=== PATIENT | male | born 1975 | race Caucasian/White ===

== ENCOUNTER 2019-03-14 09:10 | Emergency (ER) | payer MEDICAID ==
[~2019-03-14] VITALS: Ht 170.2 cm; Wt 74.0 kg
--- NOTE | 2019-03-14 09:30 | NUR ---
ASSUMED CARE OF PT AT THIS TIME FROM TRIAGE. AMBULATORY TO ROOM WITH STEADY GAIT. PT RA SATURATION 87%. PT REPORTS "I'M ALWAYS IN THE 80'S, EVERY SINCE I WAS KID, HAD HEART SURGERY AT AGE 8, THEY ALWAYS GET EXCITED ABOUT MY OXGYEN WHEN I COME TO HOSPITAL BUT I'M FINE." DENIES CP, SOB AND HOME O2 USE. 43 Y/O M PRESENTS STATING "ABDOMINAL PAIN FOR 1-2 MONTHS, GETTING WORSE, EVERY MORNING AFTER I EAT I THROW UP ONCE OR TWICE AND THEN FINE FOR REST OF THE DAY, THE PAIN ISN'T BAD NOW BUT IT COMES IN WAVES AND IT IT'S EXTREME." RATES ABD PAIN 5/10, REFSUSES NEED FOR PAIN MEDICATION "I'M COMFORTABLE RIGHT NOW." CONT PULSE OX, BP, CARDIAC MONITORS APPLIED. VSS. ST ON MONITOR. CALL LIGHT IN REACH IN REACH. FALL PRECAUTIONS IN PLACE. A&OX4. FAMILY AT BEDSIDE. AIXA MORTON AT BEDSIDE FOR EVALUATION. CLEAN CATCH UA COLLECTED.
[2019-03-14 09:55] LABS: MICROSCOPIC AUTO
[2019-03-14 09:57] LABS: CULTURE INDICATED? YES
[2019-03-14 10:05] LABS: ALANINE AMINOTRANSFERASE 38 U/L (12-78); ALBUMIN 3.8 g/dL (3.4-5.0); ANION GAP 8 mmol/L (5-15); CHLORIDE 102 mmol/L (98-107); CREATININE 0.95 mg/dL (0.7-1.3)
[2019-03-14 10:08] LABS: ALKALINE PHOSPHATASE 118 U/L (45-117); BILIRUBIN,TOTAL 0.9 mg/dL (0.2-1.0); TOTAL PROTEIN 7.9 g/dL (6.4-8.2)
--- NOTE | 2019-03-14 10:24 | NUR ---
PT RESTING IN POSITION OF COMFORT. RATES PAIN 6/10 IN ABD, REFUSES NEED FOR PAIN MEDICATION. DENIES ANY NAUSEA. TALKATIVE AND CHEERFUL WITH FAMILY AT BEDSIDE. CONTINUE AWAITING LAB RESULTS, LAB CALLED, TO BE POSTED SHORTLY. VSS. CALL LIGHT IN REACH. RESP REGULAR AND UNLABORED. PULSE OX 91% 3L NC. SKIN PWD. DENIES CP, SOB.
[2019-03-14 10:39] LABS: MEAN CORPUSCULAR HEMOGLOBIN 33.3 pg (27.5-34.5); MEAN CORPUSCULAR HGB CONC 33.1 g/dL (33.2-36.2); MEAN CORPUSCULAR VOLUME 100.8 fL (81-97); RED BLOOD COUNT 5.45 x10^6/uL (4.38-5.82); RED CELL DISTRIBUTION WIDTH 14.5 % (9.4-14.8)
[2019-03-14 10:51] LABS: MEAN PLATELET VOLUME 11.4 fL (7.4-10.4); PLATELET COUNT 85 x10^3/uL (130-400)
--- NOTE | 2019-03-14 10:59 | NUR ---
DR. HENNESSY AT BEDSIDE FOR EVALUATION
[2019-03-14 11:01] LABS: MD SCAN
[2019-03-14 11:02] LABS: BASOPHILS # (AUTO) 0.02 x10^3/uL (0-0.1); BASOPHILS % (AUTO) 0 % (0-1); EOSINOPHILS # (AUTO) 0.05 x10^3/uL (0-0.4); EOSINOPHILS % (AUTO) 1 % (1-7); LYMPHOCYTES # (AUTO) 1.65 x10^3/uL (1-3.4); LYMPHOCYTES % (AUTO) 26 % (22-44); MONOCYTES # (AUTO) 0.54 x10^3/uL (0.2-0.8); MONOCYTES % (AUTO) 9 % (2-9); NEUTROPHILS # (AUTO) 4.13 x10^3/uL (1.8-6.8); NEUTROPHILS % (AUTO) 65 % (42-75)
--- NOTE | 2019-03-14 11:30 | NUR ---
AIXA MORTON AT BEDSIDE DISCUSSING POC WITH PT, PT RA SATUATION 86-89%, AIXA MORTON AND DR. HENNESSY AT BEDSIDE, AWARE, PT REPORTS "I'M ALWAYS THIS LOW, I'VE NEVER NEEDED OXYGEN OR WANTED TO USE IT, I MONITOR IT CLOSELY AND IF I EVER FEEL I NEED HOME OXYGEN I WILL COME GET IT." DENIES ANY SOB, BREATHING DIFFICULTY, CP, VITALS OTHERWISE STABLE. PT TO BE DISCHARGED PER ERP DR. HENNESSY
[2019-03-14 11:49] VITALS: BP 127/83
== END 2019-03-14 11:53 | disposition home or self-care (01) ==
LOC: ED 10:41
DX: R10.84 Generalized abdominal pain (principal)
CPT/HCPCS: 36415; 71045; 80053; 81001; 83690; 85025; 87086; 93005; 99284

== ENCOUNTER 2019-03-31 14:01 | Emergency (ER) | payer MEDICAID ==
[~2019-03-31] VITALS: Ht 170.2 cm; Wt 70.0 kg
--- NOTE | 2019-03-31 14:35 | NUR ---
Yellow slip sent to pharmacy requesting medication per EMAR.
[2019-03-31] MEDS ORDERED: LIDOCAINE GEL 2%, 5ML TP ONE (15:00)
[2019-03-31] MEDS ORDERED: LIDOCAINE JELLY 2%, 30GM TP ONE (15:00)
--- NOTE | 2019-03-31 15:29 | NUR ---
Called pharmacy requesting medication per EMAR requested on yellow slip. forestry aid technician states, "I will send it right away."
--- NOTE | 2019-03-31 15:29 | NUR ---
Pt resting on [employer]. LEIDA. Pt talking on cell phone. No needs expressed.
[2019-03-31 15:57] VITALS: BP 103/62
== END 2019-03-31 16:01 | disposition home or self-care (01) ==
LOC: ED 14:45
DX: H60.8X1 Other otitis externa, right ear (principal); E11.65 Type 2 diabetes mellitus with hyperglycemia; R09.02 Hypoxemia
CPT/HCPCS: 82962; 99283

== ENCOUNTER 2021-03-11 21:02 | Inpatient (IN) | payer MEDICAID ==
[~2021-03-11] VITALS: Ht 170.2 cm; Wt 71.8 kg
[~2021-03-11 21:02] MED LIST: GABA300S PO; GABA600T7 PO; INSU100C SQ-INSULIN; INSU100V8 SQ; LISI30TA4 PO; LISI5TAB7 PO; METH-639 PO; METO50TA82 PO; PANT40TA3 PO; SPIR25TA5 PO
[2021-03-11] MEDS ORDERED: ADENOSINE 6 MG/2 ML ONE (21:07)
[2021-03-11] MEDS ORDERED: DILTIAZEM 5 MG/ML, 5ML ONE ×2 (21:20→21:58)
--- NOTE | 2021-03-11 21:20 | NUR ---
Patient BIBA from home c/o palpitations. Patient in SVT for EMS. Per patient, he suddenly experienced palpitations which became longer palpitations and pain in left side of chest. Patient also experienced SOB, one episode of vomiting, and syncope. 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 For EMS, patient was diaphoretic and obviously SOB. In SVT at a rate of 250-260. Admin Adenosine x3 doses; [id number]. Rate slowed to approx 140-150. He was also hypotensive. EMS admin 1L NS with a pressure bag; last BP for EMS 90/60. Currently patient slightly diaphoretic. C/o CP 02/26 and SOB. Patient hypotensive; admin 2nd L NS.
[2021-03-11 21:30] LABS: BASOPHILS % (AUTO) 1 % (0-1); EOSINOPHILS % (AUTO) 1 % (1-7); LYMPHOCYTES % (AUTO) 26 % (22-44); MEAN PLATELET VOLUME 11.5 fL (7.4-10.4); MONOCYTES % (AUTO) 10 % (2-9); NEUTROPHILS % (AUTO) 62 % (42-75); PLATELET COUNT 70 x10^3/uL (130-400); RED BLOOD COUNT 5.08 x10^6/uL (4.38-5.82); RED CELL DISTRIBUTION WIDTH 14.8 % (9.4-14.8)
[2021-03-11] MEDS ORDERED: SODIUM CHLORIDE 0.9% 1,000ML IVBOLUS ONE (21:30)
[2021-03-11] MEDS ORDERED: PLEASE ENTER HEIGHT AND WEIGHT MC SCH (21:30)
[2021-03-11] MEDS ORDERED: ADENOSINE 6 MG/2 ML IVPush ONE (21:30)
[2021-03-11 21:40] LABS: ALANINE AMINOTRANSFERASE 36 U/L (12-78); ALBUMIN 3.7 g/dL (3.4-5.0); ANION GAP 11 mmol/L (5-15); CALCIUM 8.6 mg/dL (8.5-10.1); CHLORIDE 106 mmol/L (98-107)
[2021-03-11 21:43] LABS: ALKALINE PHOSPHATASE 74 U/L (45-117); CREATININE 2.34 mg/dL (0.7-1.3)
--- NOTE | 2021-03-11 21:44 | NUR ---
2118: 12mg Adenosine with no changes. 2124: 20mg Cardizem with rate change to 108-120. Patient states CP decreased to a 3/10 and breathing is better.
[2021-03-11] MEDS ORDERED: DILTIAZEM 5 MG/ML, 5ML IVPush ONE ×3 (22:00→22:30)
--- NOTE | 2021-03-11 22:45 | NUR ---
Initiated 500mL NS bolus due to SBP maintaining <90.
[2021-03-11] MEDS ORDERED: KETAMINE 100 MG/ML, 5ML IV ONE (22:46)
--- NOTE | 2021-03-11 23:15 | NUR ---
Patient prepped for procedural sedation for cardioversion.
[2021-03-11] MEDS ORDERED: ACETAMINOPHEN 325 MG TABLET PO PRN (23:30)
[2021-03-11] MEDS: INSULIN GLARGINE 100 UNITS/ML, PEN SQ-INSULIN SCH (23:30)
[2021-03-11] MEDS ORDERED: ZOLPIDEM 5MG TABLET PO PRN (23:30)
[2021-03-11] MEDS ORDERED: BACLOFEN 10 MG TABLET PO PRN (23:30)
[2021-03-11] MEDS ORDERED: ONDANSETRON 2MG/ML, 2ML IVPush PRN (23:30)
[2021-03-11] MEDS ORDERED: DOCUSATE 100 MG CAPSULE PO PRN (23:30)
[2021-03-11] MEDS ORDERED: hydrALAzine 20 MG/ML, 1ML IVPush PRN (23:30)
[2021-03-11] MEDS ORDERED: GUAIFENESIN/DM 200-20MG, 10ML UDC PO PRN (23:30)
--- NOTE | 2021-03-11 23:30 | NUR ---
100mg Ketamine total admin for procedural sedation.
--- NOTE | 2021-03-11 23:58 | NUR ---
Patient recovering from procedural sedation. Report given to HEATHER Hollis. Patient to be transferred to room 523 after recovery.
--- NOTE | 2021-03-12 00:15 | NUR ---
Patient AAOx4, GCS 15. Ready for transport.
[2021-03-12 00:45] VITALS: BP 115/76
[2021-03-12] MEDS: SODIUM CHLORIDE 0.9% 1,000 ML IV SCH ×3 (01:21→22:44)
[2021-03-12 05:36] LABS: BASOPHILS % (AUTO) 1 % (0-1); EOSINOPHILS % (AUTO) 1 % (1-7); LYMPHOCYTES % (AUTO) 33 % (22-44); MEAN CORPUSCULAR HEMOGLOBIN 35.1 pg (27.5-34.5); MEAN CORPUSCULAR HGB CONC 34.2 g/dL (33.2-36.2); MEAN PLATELET VOLUME 11.1 fL (7.4-10.4); MONOCYTES % (AUTO) 9 % (2-9); NEUTROPHILS % (AUTO) 56 % (42-75); PLATELET COUNT 56 x10^3/uL (130-400); RED BLOOD COUNT 4.76 x10^6/uL (4.38-5.82); RED CELL DISTRIBUTION WIDTH 15.1 % (9.4-14.8)
[2021-03-12 05:53] LABS: CHLORIDE 113 mmol/L (98-107)
[2021-03-12 05:59] LABS: ANION GAP 9 mmol/L (5-15); CREATININE 1.26 mg/dL (0.7-1.3)
[2021-03-12] MEDS: INSULIN REGULAR 100 UNITS/ML, 3ML VIAL SQ-INSULIN SCH ×4 (07:00→21:00)
[2021-03-12 07:54] VITALS: BP 132/83
[2021-03-12] MEDS: GABAPENTIN 300 MG CAPSULE PO SCH ×2 (08:08→22:29)
[2021-03-12] MEDS: LISINOPRIL 5 MG TABLET PO SCH ×2 (08:08→22:29)
[2021-03-12] MEDS: METOPROLOL TARTRATE 50 MG TAB PO SCH (08:08)
[2021-03-12] MEDS: METHOCARBAMOL 500 MG TABLET PO SCH ×2 (08:08→22:29)
[2021-03-12] MEDS: PANTOPRAZOLE 40MG TABLET PO SCH (08:08)
[2021-03-12] MEDS ORDERED: LORazepam 2 MG/ML, 1ML IVPush ONE (11:00)
[2021-03-12 13:22] VITALS: BP 120/77
[2021-03-12 22:23] VITALS: BP 128/82
[2021-03-12] MEDS: INSULIN GLARGINE 100 UNITS/ML, PEN SQ-INSULIN SCH (22:33)
[2021-03-13 03:05] VITALS: BP 121/78
[2021-03-13] MEDS: INSULIN REGULAR 100 UNITS/ML, 3ML VIAL SQ-INSULIN SCH ×2 (07:00→11:00)
[2021-03-13 08:40] VITALS: BP 179/103
[2021-03-13] MEDS ORDERED: SPIRONOLACTONE 25 MG TABLET PO SCH (09:00)
[2021-03-13] MEDS ORDERED: CHLORDIAZEPOXIDE 25 MG CAPSULE PO ONE (09:00)
[2021-03-13] MEDS: METOPROLOL TARTRATE 50 MG TAB PO SCH (09:27)
[2021-03-13] MEDS: PANTOPRAZOLE 40MG TABLET PO SCH (09:27)
[2021-03-13] MEDS: GABAPENTIN 300 MG CAPSULE PO SCH (09:27)
[2021-03-13] MEDS: METHOCARBAMOL 500 MG TABLET PO SCH (09:28)
[2021-03-13] MEDS: LISINOPRIL 5 MG TABLET PO SCH (09:28)
[2021-03-13] MEDS: SODIUM CHLORIDE 0.9% 1,000 ML IV SCH (10:40)
== END 2021-03-13 16:41 | disposition home or self-care (01) | DRG 682 ==
LOC: ED 22:33 → EDIP 23:37 → INTOOBSV 23:37 → OBSVTOIN 23:37 → 5SO 03-12 00:30
PROVIDERS: ADMIT Internal Medicine; ATTEND Hospitalist
PROC: 5A2204Z Restoration of Cardiac Rhythm, Single (ICD-10-PCS; principal; 2021-03-11)
DX: N17.9 Acute kidney failure, unspecified (principal); Q20.4 Double inlet ventricle; I50.20 Unspecified systolic (congestive) heart failure; I47.1 Supraventricular tachycardia; K21.9 Gastro-esophageal reflux disease without esophagitis; F17.210 Nicotine dependence, cigarettes, uncomplicated; F10.10 Alcohol abuse, uncomplicated; D50.9 Iron deficiency anemia, unspecified; E11.9 Type 2 diabetes mellitus without complications; D69.6 Thrombocytopenia, unspecified; D53.9 Nutritional anemia, unspecified; E86.0 Dehydration; I48.91 Unspecified atrial fibrillation; F12.90 Cannabis use, unspecified, uncomplicated; K70.30 Alcoholic cirrhosis of liver without ascites; Z76.82 Awaiting organ transplant status; Z79.4 Long term (current) use of insulin; Z81.8 Family history of other mental and behavioral disorders; Z82.49 Family history of ischemic heart disease and other diseases of the circulatory system; Z83.3 Family history of diabetes mellitus; Z95.2 Presence of prosthetic heart valve; Z88.2 Allergy status to sulfonamides
CPT/HCPCS: 36415; 71045; 80048; 80053; 82962; 83690; 84484; 85025; 92960; 93005; 93306; 96374; 99152; G0378; J0153; J1815; J2060; J7030

== ENCOUNTER 2021-06-03 08:12 | Inpatient (IN) | payer MEDICAID ==
[~2021-06-03] VITALS: Ht 170.2 cm; Wt 73.7 kg
[2021-06-03] MEDS ORDERED: ONDANSETRON 2MG/ML, 2ML ONE (08:15)
--- NOTE | 2021-06-03 08:16 | NUR ---
0810 45 YR OLD MALE ARRIVED VIA EMS, PER REPORT PT WAS AT HOME, HAD DIZZINESS, SYNCOPAL EPISODE, N/V FELT LIKE HEART WAS RACING. FIRE DEPARTMENT ARRIVED UNABLE TO PALPATE PULES OR OBTAIN A MANUAL BP. PT IN AMBULANCE, HEART RATE FOUND TO BE 220, POOR SPO2 READING. PT RECEIVED 6MG ADENOSIN, 12MG ADENOSINE AND 12MG ADENOSINE, WITH SLIGHT SLOWING AFTER 1STG DOSE OF 12 MG AND RETURN TO SVT. BLOOD SUGAR 236. PT HAS BEEN RESPONSIVE ENTIRE TIME. PT ARRIVES WITH IV X2 IN PLACE, RECEIVED 500MG NS. DR ARCHIBALD AT BEDSIDE. 0814 PT RECEIVED 10MG ETOMIDATE, PT WITH NAUSEA. 0815 SYNCHRONIZED CARDIOVERSION AT 150J. HR DECREASED TO 70'S. 0815 4MG ZOFRAN GIVEN.
[2021-06-03] MEDS ORDERED: ETOMIDATE 20 MG/10 ML IVPush ONE (08:30)
[2021-06-03] MEDS ORDERED: CODE BLUE RESPONSE XX ONE (08:32)
--- NOTE | 2021-06-03 08:35 | NUR ---
PT AWAKE AND & ORIENTED X 4, STATES THIS EPISODE STARTED LAST NIGHT, "I FELL OUT BED AND WOKE UP", THEN THIS MORNING, I FELL AND REMEMBER BEING IN A AMBULANCE. PT IS IN SINSUS AT 66 VIA CONTINOUS RADIOLOGY MANAGER, CONTINOUS SPO2 AT 93% MASK 8 LNC, PT STATES HE IS ON 5LNC AT ALL TIMES, AND CYCLE VS. PT DRINKING WATER, WARM BLANKET GIVEN, CALL LIGHT IN PLACE, PT VERBALIZED NO OTHER NEEDS. X RAY COMPLETE, AND LAB
[2021-06-03 08:46] LABS: BASOPHILS % (AUTO) 1 % (0-1); EOSINOPHILS % (AUTO) 2 % (1-7); LYMPHOCYTES % (AUTO) 32 % (22-44); MEAN CORPUSCULAR HEMOGLOBIN 33.8 pg (27.5-34.5); MEAN CORPUSCULAR HGB CONC 33.6 g/dL (33.2-36.2); MEAN PLATELET VOLUME 10.8 fL (7.4-10.4); MONOCYTES % (AUTO) 9 % (2-9); NEUTROPHILS % (AUTO) 56 % (42-75); PLATELET COUNT 95 x10^3/uL (130-400); RED BLOOD COUNT 5.75 x10^6/uL (4.38-5.82); RED CELL DISTRIBUTION WIDTH 13.9 % (9.4-14.8)
--- NOTE | 2021-06-03 08:54 | NUR ---
RECEIVED REPORT FROM HEATHER JOHNSON. PT RESTING ON DEYSI. LEIDA. MONITORS IN PLACE. PT NOTED TO BE SR ON MONITOR. PT MOVED TO ROOM 12 W/ ALL PERSONAL BELONGINGS.
[2021-06-03 09:04] LABS: ALBUMIN 3.5 g/dL (3.4-5.0); ANION GAP 10 mmol/L (5-15); CALCIUM 8.7 mg/dL (8.5-10.1); CHLORIDE 111 mmol/L (98-107); CREATININE 1.35 mg/dL (0.7-1.3)
[2021-06-03 09:07] LABS: TROPONIN I 0.094 ng/mL (0.000-0.045)
[2021-06-03] MEDS ORDERED: ONDANSETRON 2MG/ML, 2ML IVPush ONE (09:30)
[2021-06-03] MEDS ORDERED: LABETALOL 5MG/ML, 20ML IVPush PRN (10:00)
[2021-06-03] MEDS ORDERED: DEXTROSE 4 GM TAB.CHEW PO PRN (10:00)
[2021-06-03] MEDS ORDERED: GLUCAGON 1 MG IM PRN (10:00)
[2021-06-03] MEDS ORDERED: MELATONIN 5 MG TABLET PO PRN (10:00)
[2021-06-03] MEDS ORDERED: hydrALAzine 20 MG/ML, 1ML IVPush PRN (10:00)
[2021-06-03] MEDS ORDERED: ACETAMINOPHEN 325 MG TABLET PO PRN (10:00)
[2021-06-03] MEDS ORDERED: DEXTROSE 50%, 50ML SYRINGE IVPush PRN (10:00)
[2021-06-03] MEDS ORDERED: DOCUSATE 100 MG CAPSULE PO PRN (10:00)
[2021-06-03] MEDS ORDERED: NITROGLYCERIN 0.4 MG BOTTLE (25 TABS) SL PRN (10:00)
[2021-06-03] MEDS ORDERED: BISACODYL 10 MG SUPP PR PRN (10:00)
[2021-06-03] MEDS ORDERED: PROCHLORPERAZINE 5 MG/ML, 2ML IVPush PRN (10:00)
[2021-06-03] MEDS ORDERED: ENALAPRILAT 1.25 MG/ML, 2ML IVPush PRN (10:00)
[2021-06-03] MEDS ORDERED: POLYETHYLENE GLYCOL 17 GM PACKET PO PRN (10:00)
--- NOTE | 2021-06-03 10:10 | NUR ---
PT RESTING ON GURNEY. [facility] AT BEDSIDE FOR ADMISSION.
--- NOTE | 2021-06-03 11:45 | NUR ---
PT RESTING ON GURNEY. NADN. GIBBONS.
[2021-06-03] MEDS ORDERED: FAMOTIDINE 20 MG TABLET ONE (12:03)
[2021-06-03] MEDS: INSULIN LISPRO 100 UNITS/ML, PEN SQ-INSULIN SCH ×3 (12:08→20:30)
[2021-06-03] MEDS: ENOXAPARIN 30 MG/0.3 ML SQ SCH ×2 (12:08→23:47)
[2021-06-03] MEDS: FAMOTIDINE 20 MG TABLET PO SCH ×2 (12:08→20:23)
--- NOTE | 2021-06-03 12:37 | NUR ---
PT PROVIDED W/ LUNCH TRAY.
--- NOTE | 2021-06-03 12:41 | NUR ---
PT RESTING ON GURNEY. NADN. GIBBONS.
--- NOTE | 2021-06-03 13:47 | NUR ---
PT RESTING ON GURNEY. NADN. GIBBONS.
--- NOTE | 2021-06-03 14:31 | NUR ---
REPORT GIVEN TO ESTEFANIA CHAUDHARY RN. ALL QUESTIONS ANSWERED. AWAITING PT TRANSPORT.
--- NOTE | 2021-06-03 14:53 | NUR ---
PT RESTING ON GURNEY. NADN. GIBBONS.
[2021-06-03 14:56] LABS: CHOL/HDL RATIO 3.4; LDL/HDL RATIO 1.5 (0.5-3.0)
[2021-06-03 14:58] VITALS: BP 111/68
[2021-06-03] MEDS: FOLIC ACID 1 MG TABLET PO SCH (15:19)
[2021-06-03] MEDS ORDERED: MAGNESIUM SULFATE PMX 2GM/50ML 50 ML IV ONE (15:30)
[2021-06-03 18:47] VITALS: BP 116/74
[2021-06-03 20:21] VITALS: BP 108/67
[2021-06-03] MEDS: METOPROLOL SUCCINATE 25 MG TAB.ER.24H PO SCH (20:23)
[2021-06-03] MEDS: SODIUM CHLORIDE FLUSH 10ML SYR IVF SCH (20:24)
[2021-06-03] MEDS ORDERED: METOPROLOL SUCCINATE 25 MG TAB.ER.24H PO SCH (21:00)
[2021-06-03] MEDS ORDERED: METHOCARBAMOL 500 MG TABLET PO PRN (21:00)
[2021-06-04 01:17] VITALS: BP 106/61
[2021-06-04 05:41] LABS: BASOPHILS % (AUTO) 1 % (0-1); EOSINOPHILS % (AUTO) 3 % (1-7); LYMPHOCYTES % (AUTO) 28 % (22-44); MEAN CORPUSCULAR HEMOGLOBIN 34.3 pg (27.5-34.5); MEAN CORPUSCULAR HGB CONC 34.3 g/dL (33.2-36.2); MEAN PLATELET VOLUME 11.8 fL (7.4-10.4); MONOCYTES % (AUTO) 9 % (2-9); NEUTROPHILS % (AUTO) 60 % (42-75); PLATELET COUNT 79 x10^3/uL (130-400); RED BLOOD COUNT 5.07 x10^6/uL (4.38-5.82); RED CELL DISTRIBUTION WIDTH 13.5 % (9.4-14.8)
[2021-06-04 05:56] LABS: ALBUMIN 3.4 g/dL (3.4-5.0); ANION GAP 8 mmol/L (5-15); CALCIUM 8.5 mg/dL (8.5-10.1); CHLORIDE 107 mmol/L (98-107)
[2021-06-04] MEDS ORDERED: METOPROLOL SUCCINATE 50 MG TAB.ER.24H PO SCH (06:00)
[2021-06-04] MEDS: ASPIRIN 325 MG TABLET EC PO SCH (06:00)
[2021-06-04 06:08] LABS: ALANINE AMINOTRANSFERASE 53 U/L (12-78); ALKALINE PHOSPHATASE 100 U/L (45-117); BILIRUBIN,TOTAL 1.2 mg/dL (0.2-1.0); CREATININE 0.77 mg/dL (0.7-1.3); TOTAL PROTEIN 6.8 g/dL (6.4-8.2)
[2021-06-04 06:13] VITALS: BP 106/61
[2021-06-04] MEDS: METOPROLOL SUCCINATE 50 MG TAB.ER.24H PO SCH (06:14)
[2021-06-04] MEDS ORDERED: MAGNESIUM SULFATE PMX 2GM/50ML 50 ML IV ONE (06:30)
[2021-06-04] MEDS: INSULIN LISPRO 100 UNITS/ML, PEN SQ-INSULIN SCH ×4 (07:00→20:49)
[2021-06-04 07:57] LABS: TROPONIN I 0.154 ng/mL (0.000-0.045)
[2021-06-04 08:05] VITALS: BP 129/79
[2021-06-04] MEDS: SODIUM CHLORIDE FLUSH 10ML SYR IVF SCH ×2 (09:00→20:57)
[2021-06-04] MEDS: FOLIC ACID 1 MG TABLET PO SCH (09:00)
[2021-06-04] MEDS: FAMOTIDINE 20 MG TABLET PO SCH ×2 (09:00→20:57)
[2021-06-04] MEDS: KETOROLAC 30 MG/1 ML IV PRN ×2 (09:15→18:36)
[2021-06-04] MEDS ORDERED: GADOTERATE 7.5 MMOL/15ML SYR ONE (11:07)
[2021-06-04] MEDS ORDERED: ASPIRIN 325 MG TABLET EC PO SCH (11:30)
[2021-06-04] MEDS: SENNA/DOCUSATE TABLET PO SCH (11:30)
[2021-06-04] MEDS: ENOXAPARIN 30 MG/0.3 ML SQ SCH ×2 (11:30→22:29)
[2021-06-04 12:25] VITALS: BP 131/81
[2021-06-04] MEDS ORDERED: CEFTRIAXONE 2,000 MG in DEXTROSE 5% 50 ML IVPB SCH (13:00)
[2021-06-04] MEDS ORDERED: PHARMACOKINETIC MONITORING MC PRN (13:00)
[2021-06-04] MEDS ORDERED: LIDOCAINE-MPF 1%, 5ML ONE (13:15)
[2021-06-04 13:28] LABS: TROPONIN I 0.115 ng/mL (0.000-0.045)
[2021-06-04] MEDS ORDERED: VANCOMYCIN 1,900 MG in SODIUM CHLORIDE 0.9% 250 ML IV ONE (14:00)
[2021-06-04] MEDS ORDERED: VANCOMYCIN PER PHARMACY MC PRN (14:00)
[2021-06-04 15:17] LABS: GLUCOSE, CSF 82 mg/dL (40-80); TOTAL PROTEIN,CSF 42 mg/dL (15-45)
[2021-06-04] MEDS: ACYCLOVIR 750 MG in SODIUM CHLORIDE 0.9% 250 ML IV SCH (18:36)
[2021-06-04] MEDS ORDERED: OMNIPAQUE 350 MG/ML, 100ML BOTTLE ONE (19:22)
[2021-06-04 20:44] VITALS: BP 140/76
[2021-06-04] MEDS: METOPROLOL SUCCINATE 25 MG TAB.ER.24H PO SCH (20:56)
[2021-06-04] MEDS: VANCOMYCIN 1,500 MG in SODIUM CHLORIDE 0.9% 250 ML IV SCH (22:23)
[2021-06-05 00:26] VITALS: BP 116/65
[2021-06-05] MEDS: ACYCLOVIR 750 MG in SODIUM CHLORIDE 0.9% 250 ML IV SCH ×3 (01:53→17:18)
[2021-06-05] MEDS: CEFTRIAXONE 2,000 MG in DEXTROSE 5% 50 ML IVPB SCH ×2 (04:00→17:40)
[2021-06-05] MEDS: ASPIRIN 325 MG TABLET EC PO SCH (05:30)
[2021-06-05 05:59] LABS: AMPHETAMINE SCREEN, URINE Negative (Negative); BARBITURATE SCREEN, URINE Negative (Negative); BENZODIAZEPINE SCREEN, URINE Negative (Negative); CANNABINOID SCREEN, URINE Positive (Negative); COCAINE SCREEN, URINE Negative (Negative); METHADONE SCREEN, URINE Negative (Negative); OPIATE SCREEN, URINE Negative (Negative)
[2021-06-05 06:28] LABS: ANION GAP 4 mmol/L (5-15); CALCIUM 8.4 mg/dL (8.5-10.1); CHLORIDE 108 mmol/L (98-107); CREATININE 0.73 mg/dL (0.7-1.3)
[2021-06-05 06:31] LABS: BASOPHILS % (AUTO) 1 % (0-1); EOSINOPHILS % (AUTO) 2 % (1-7); LYMPHOCYTES % (AUTO) 24 % (22-44); MEAN CORPUSCULAR HEMOGLOBIN 34.4 pg (27.5-34.5); MEAN CORPUSCULAR HGB CONC 34.9 g/dL (33.2-36.2); MEAN PLATELET VOLUME 11.2 fL (7.4-10.4); MONOCYTES % (AUTO) 9 % (2-9); NEUTROPHILS % (AUTO) 65 % (42-75); PLATELET COUNT 70 x10^3/uL (130-400); RED BLOOD COUNT 4.89 x10^6/uL (4.38-5.82); RED CELL DISTRIBUTION WIDTH 13.5 % (9.4-14.8)
[2021-06-05 07:24] VITALS: BP 129/73
[2021-06-05] MEDS: INSULIN LISPRO 100 UNITS/ML, PEN SQ-INSULIN SCH ×4 (08:02→21:00)
[2021-06-05] MEDS: METOPROLOL SUCCINATE 50 MG TAB.ER.24H PO SCH (09:47)
[2021-06-05] MEDS: SENNA/DOCUSATE TABLET PO SCH (09:47)
[2021-06-05] MEDS: SODIUM CHLORIDE FLUSH 10ML SYR IVF SCH ×2 (09:47→21:00)
[2021-06-05] MEDS: FAMOTIDINE 20 MG TABLET PO SCH ×2 (09:49→21:46)
[2021-06-05] MEDS: FOLIC ACID 1 MG TABLET PO SCH (09:50)
[2021-06-05] MEDS: VANCOMYCIN 1,500 MG in SODIUM CHLORIDE 0.9% 250 ML IV SCH ×2 (10:42→21:46)
[2021-06-05] MEDS: ENOXAPARIN 30 MG/0.3 ML SQ SCH ×2 (11:59→21:46)
[2021-06-05 14:16] VITALS: BP 101/57
[2021-06-05 19:53] VITALS: BP 129/84
[2021-06-05] MEDS: METOPROLOL SUCCINATE 25 MG TAB.ER.24H PO SCH (21:46)
[2021-06-06] MEDS: ACYCLOVIR 750 MG in SODIUM CHLORIDE 0.9% 250 ML IV SCH ×3 (02:36→16:13)
[2021-06-06 02:40] VITALS: BP 115/68
[2021-06-06] MEDS: CEFTRIAXONE 2,000 MG in DEXTROSE 5% 50 ML IVPB SCH ×2 (04:29→16:14)
[2021-06-06] MEDS: METOPROLOL SUCCINATE 50 MG TAB.ER.24H PO SCH (05:09)
[2021-06-06] MEDS: ASPIRIN 325 MG TABLET EC PO SCH (05:47)
[2021-06-06 07:25] VITALS: BP 158/83
[2021-06-06] MEDS: INSULIN LISPRO 100 UNITS/ML, PEN SQ-INSULIN SCH ×4 (09:43→21:54)
[2021-06-06] MEDS: SODIUM CHLORIDE FLUSH 10ML SYR IVF SCH ×2 (09:44→21:53)
[2021-06-06] MEDS: SENNA/DOCUSATE TABLET PO SCH (09:44)
[2021-06-06] MEDS: FOLIC ACID 1 MG TABLET PO SCH (09:44)
[2021-06-06] MEDS: FAMOTIDINE 20 MG TABLET PO SCH ×2 (09:44→21:53)
[2021-06-06] MEDS: VANCOMYCIN 1,500 MG in SODIUM CHLORIDE 0.9% 250 ML IV SCH ×2 (11:29→23:34)
[2021-06-06] MEDS: ENOXAPARIN 30 MG/0.3 ML SQ SCH ×2 (11:29→23:34)
[2021-06-06 13:02] VITALS: BP 135/75
[2021-06-06] MEDS ORDERED: OMNIPAQUE 350 MG/ML, 75ML BOTTLE ONE (15:31)
[2021-06-06 21:51] VITALS: BP 133/74
[2021-06-06] MEDS: METHOCARBAMOL 500 MG TABLET PO SCH (21:53)
[2021-06-06] MEDS: METOPROLOL SUCCINATE 25 MG TAB.ER.24H PO SCH (21:53)
[2021-06-06] MEDS: GABAPENTIN 300 MG CAPSULE PO SCH (21:53)
[2021-06-07 01:12] VITALS: BP 125/71
[2021-06-07] MEDS: ACYCLOVIR 750 MG in SODIUM CHLORIDE 0.9% 250 ML IV SCH ×3 (01:13→16:59)
[2021-06-07 01:29] VITALS: BP 115/71
[2021-06-07] MEDS: CEFTRIAXONE 2,000 MG in DEXTROSE 5% 50 ML IVPB SCH ×2 (04:28→18:28)
[2021-06-07 05:29] LABS: HCT (SEDRATE) 46.9 % (39.2-51.8)
[2021-06-07 05:42] LABS: CHLORIDE 105 mmol/L (98-107)
[2021-06-07 05:49] LABS: ALANINE AMINOTRANSFERASE 39 U/L (12-78); ALBUMIN 3.3 g/dL (3.4-5.0); ALKALINE PHOSPHATASE 88 U/L (45-117); ANION GAP 7 mmol/L (5-15); BILIRUBIN,TOTAL 1.1 mg/dL (0.2-1.0); C-REACTIVE PROTEIN, QUANT 0.22 mg/dL (0.02-0.49); CREATININE 0.69 mg/dL (0.7-1.3); TOTAL PROTEIN 6.6 g/dL (6.4-8.2)
[2021-06-07] MEDS: ASPIRIN 325 MG TABLET EC PO SCH (05:52)
[2021-06-07 06:08] LABS: BASOPHILS % (AUTO) 1 % (0-1); EOSINOPHILS % (AUTO) 3 % (1-7); LYMPHOCYTES % (AUTO) 27 % (22-44); MEAN CORPUSCULAR HEMOGLOBIN 33.7 pg (27.5-34.5); MEAN CORPUSCULAR HGB CONC 34.2 g/dL (33.2-36.2); MEAN PLATELET VOLUME 10.9 fL (7.4-10.4); MONOCYTES % (AUTO) 11 % (2-9); NEUTROPHILS % (AUTO) 58 % (42-75); PLATELET COUNT 70 x10^3/uL (130-400); RED CELL DISTRIBUTION WIDTH 13.4 % (9.4-14.8)
[2021-06-07] MEDS: INSULIN LISPRO 100 UNITS/ML, PEN SQ-INSULIN SCH ×4 (07:00→20:34)
[2021-06-07] MEDS ORDERED: MAGNESIUM SULFATE PMX 2GM/50ML 50 ML IV ONE (08:00)
[2021-06-07] MEDS ORDERED: POTASSIUM CHLORIDE 20 MEQ TAB.ER.PRT PO ONE (08:00)
[2021-06-07 08:45] VITALS: BP 129/75
[2021-06-07] MEDS: METOPROLOL SUCCINATE 50 MG TAB.ER.24H PO SCH (09:00)
[2021-06-07] MEDS: SENNA/DOCUSATE TABLET PO SCH (09:00)
[2021-06-07] MEDS: GABAPENTIN 300 MG CAPSULE PO SCH ×2 (11:29→20:35)
[2021-06-07] MEDS: FAMOTIDINE 20 MG TABLET PO SCH ×2 (11:29→20:34)
[2021-06-07] MEDS: ENOXAPARIN 30 MG/0.3 ML SQ SCH ×2 (11:29→22:41)
[2021-06-07] MEDS: FOLIC ACID 1 MG TABLET PO SCH (11:29)
[2021-06-07] MEDS: METHOCARBAMOL 500 MG TABLET PO SCH ×2 (11:30→20:34)
[2021-06-07] MEDS: SODIUM CHLORIDE FLUSH 10ML SYR IVF SCH ×2 (11:33→18:57)
[2021-06-07] MEDS: VANCOMYCIN 1,500 MG in SODIUM CHLORIDE 0.9% 250 ML IV SCH (13:22)
[2021-06-07 13:52] VITALS: BP 122/72
[2021-06-07 19:46] VITALS: BP 135/84
[2021-06-07] MEDS: METOPROLOL SUCCINATE 25 MG TAB.ER.24H PO SCH (20:34)
[2021-06-07] MEDS ORDERED: VANCOMYCIN 1,700 MG in SODIUM CHLORIDE 0.9% 250 ML IV SCH (23:30)
[2021-06-08] MEDS: ACYCLOVIR 750 MG in SODIUM CHLORIDE 0.9% 250 ML IV SCH (00:06)
[2021-06-08 00:09] VITALS: BP 103/64
[2021-06-08] MEDS: METOPROLOL SUCCINATE 50 MG TAB.ER.24H PO SCH (05:13)
[2021-06-08] MEDS: ASPIRIN 325 MG TABLET EC PO SCH (05:13)
[2021-06-08] MEDS: INSULIN LISPRO 100 UNITS/ML, PEN SQ-INSULIN SCH ×2 (07:00→11:30)
[2021-06-08 07:35] VITALS: BP 129/74
[2021-06-08] MEDS: METHOCARBAMOL 500 MG TABLET PO SCH (08:48)
[2021-06-08] MEDS: SENNA/DOCUSATE TABLET PO SCH (08:48)
[2021-06-08] MEDS: GABAPENTIN 300 MG CAPSULE PO SCH (08:48)
[2021-06-08] MEDS: FOLIC ACID 1 MG TABLET PO SCH (08:48)
[2021-06-08] MEDS: FAMOTIDINE 20 MG TABLET PO SCH (08:48)
[2021-06-08] MEDS: SODIUM CHLORIDE FLUSH 10ML SYR IVF SCH (08:49)
[2021-06-08 09:41] LABS: ANION GAP 6 mmol/L (5-15); CHLORIDE 105 mmol/L (98-107)
[2021-06-08 09:44] LABS: CALCIUM 9.5 mg/dL (8.5-10.1); CREATININE 0.71 mg/dL (0.7-1.3)
[2021-06-08 13:05] VITALS: BP 116/74
[2021-06-08] MEDS ORDERED: ASPI-1026 PO (13:43)
[2021-06-08] MEDS ORDERED: METO25TA91 PO (13:43)
[2021-06-08] MEDS ORDERED: LISI5TAB7 PO (13:57)
[2021-06-08] MEDS ORDERED: INSU100C SQ-INSULIN (13:57)
[2021-06-08] MEDS ORDERED: NICO-486 TD (13:57)
[2021-06-08] MEDS: ENOXAPARIN 30 MG/0.3 ML SQ SCH (14:06)
== END 2021-06-08 15:20 | disposition home or self-care (01) | DRG 308 ==
LOC: ED 08:24 → EDIP 09:39 → 5SO 14:58
PROVIDERS: ADMIT Family Medicine; ATTEND Internal Medicine
PROC: 5A2204Z Restoration of Cardiac Rhythm, Single (ICD-10-PCS; principal; 2021-06-03)
PROC: 009U3ZX Drainage of Spinal Canal, Percutaneous Approach, Diagnostic (ICD-10-PCS; 2021-06-04)
PROC: B01B1ZZ Fluoroscopy of Spinal Cord using Low Osmolar Contrast (ICD-10-PCS; 2021-06-04)
DX: I47.1 Supraventricular tachycardia (principal); N17.0 Acute kidney failure with tubular necrosis; D69.6 Thrombocytopenia, unspecified; D75.89 Other specified diseases of blood and blood-forming organs; E11.9 Type 2 diabetes mellitus without complications; E83.42 Hypomagnesemia; E87.6 Hypokalemia; I10 Essential (primary) hypertension; K21.9 Gastro-esophageal reflux disease without esophagitis; Z79.4 Long term (current) use of insulin; Z91.19 Patient's noncompliance with other medical treatment and regimen; Z95.2 Presence of prosthetic heart valve; Z72.0 Tobacco use
CPT/HCPCS: 36415; 62328; 70450; 70496; 70553; 71045; 71260; 74177; 80047; 80048; 80053; 80061; 80202; 80307; 82040; 82945; 82962; 83036; 83735; 83880; 84100; 84157; 84443; 84484; 85025; 85651; 86140; 86694; 86695; 86696; 87040; 87070; 87205; 87252; 87255; 88108; 89051; 93005; 93308; 93321; 93325; 93880; 95819; 96374; 99291; G0378; J0133; J0696; J1650; J1885; J2405; J3370; Q9967; A9575; J1815; J3475; J7050